=== PATIENT | female | born 1980 | race Two or more races ===

== ENCOUNTER 2017-10-14 00:03 | Inpatient (IN) | payer MEDICAID ==
[~2017-10-14] VITALS: Ht 167.6 cm; Wt 72.6 kg
[2017-10-14] MEDS ORDERED: FAMO20TA8 PO (00:22)
[2017-10-14] MEDS ORDERED: ASPI-605 PO (00:22)
[2017-10-14] MEDS ORDERED: SODIUM CHLORIDE PO (00:22)
[2017-10-14] MEDS ORDERED: ATOR20TA PO (00:22)
[2017-10-14] MEDS ORDERED: DULO30CA2 PO (00:22)
[2017-10-14] MEDS ORDERED: BISA10SU8 RC (00:22)
[2017-10-14] MEDS ORDERED: MAGN400O6 PO (00:23)
[2017-10-14] MEDS ORDERED: SENN-18 PO (00:23)
[2017-10-14] MEDS ORDERED: NA P133E RC (00:23)
[2017-10-14] MEDS ORDERED: ACET-73 PO (00:23)
[2017-10-14] MEDS ORDERED: IV NORMAL SALINE 1000 ML BAG IV ONE (00:30)
[2017-10-14] MEDS ORDERED: ONDANSETRON 4 MG/2 ML VIAL IV ONE ×2 (00:30→02:45)
[2017-10-14] MEDS ORDERED: ONDANSETRON 4 MG/2 ML VIAL ONE ×2 (00:42→02:12)
[2017-10-14 00:56] LABS: BASOPHILS % (AUTO) 0.4 % (0.0-2.0); EOSINOPHILS % (AUTO) 0.3 % (0.0-7.0); HEMATOCRIT 40.3 % (31.2-41.9); LYMPHOCYTES # (AUTO) 2.6 K/uL (20.0-40.0); LYMPHOCYTES % (AUTO) 24.8 % (20.5-51.5); MEAN CORPUSCULAR HEMOGLOBIN 30.4 uug (24.7-32.8); MEAN CORPUSCULAR HGB CONC 35 g/dL (32.3-35.6); MEAN CORPUSCULAR VOLUME 87.3 fL (75.5-95.3); MONOCYTES # (AUTO) 0.8 K/uL (2.0-10.0); MONOCYTES % (AUTO) 8.1 % (0.0-11.0); NEUTROPHILS # (AUTO) 6.9 K/uL (1.8-8.9); NEUTROPHILS % (AUTO) 66.4 % (38.5-71.5); PLATELET COUNT (AUTO) 231 K/uL (179-408); RED BLOOD CELL COUNT(AUTO) 4.62 MIL/uL (3.63-4.92); WHITE BLOOD COUNT (AUTO) 10.4 K/uL (3.8-11.8)
[2017-10-14 01:05] LABS: CREATININE 0.7 mg/dL (0.6-1.3); POTASSIUM 3.3 mmol/L (3.5-5.1)
[2017-10-14 01:10] LABS: BILIRUBIN,DIRECT 0.2 mg/dL (0.0-0.2); BILIRUBIN,TOTAL 0.6 mg/dL (0.2-1.0); TOTAL PROTEIN, SERUM 7.5 g/dL (6.4-8.2)
[2017-10-14 01:32] LABS: *BILIRUBIN,URIN NEGATIVE (NEGATIVE); *BLOOD, URINE NEGATIVE (NEGATIVE); *CLARITY,URINE SLIGHTLY CLOUDY (CLEAR); *COLOR,URINE YELLOW (YELLOW); *KETONES,URINE 2+ (NEGATIVE); *PROTEIN,URINE 1+ (NEGATIVE); *UROBILINOGEN,URINE 0.2 E.U./dl (NORMAL); LEUKOCYTE ESTERASE ,URINE 1+ (NEGATIVE); NITRITE, URINE POSITIVE (NEGATIVE); UGLUCOSE NEGATIVE (NEGATIVE)
[2017-10-14 01:51] LABS: RBC,URINE 0-3 /HPF (0-3); WBC,URINE 20-50 /HPF (0-3)
[2017-10-14 01:52] LABS: BACTERIA,URINE MANY /HPF (NONE SEEN); SQUAMOUS EPITHELIAL CELL,UR MANY /HPF (NONE SEEN)
[2017-10-14] MEDS ORDERED: MORPHINE SULFATE 4 MG/1 ML DISP.SYRIN ONE (02:08)
[2017-10-14] MEDS ORDERED: MORPHINE SULFATE 2 MG/1 ML DISP.SYRIN IV ONE (02:15)
[2017-10-14] MEDS ORDERED: POTASSIUM CHLORIDE 10 MEQ TAB.PRT.SR ONE (02:43)
[2017-10-14] MEDS ORDERED: PIPERACILLIN/TAZOBACTAM/D5W 50 ML IV ONE (02:43)
[2017-10-14] MEDS ORDERED: PIPERACILLIN SODIUM/TAZOBACTAM 3.375 G in IV DEXTROSE 5% 50 ML IV ONE (02:45)
[2017-10-14] MEDS ORDERED: POTASSIUM CHLORIDE 10 MEQ TAB.PRT.SR PO ONE (02:45)
[2017-10-14 07:00] VITALS: BP 112/69
[2017-10-14] MEDS ORDERED: ACETAMINOPHEN ES 500 MG TABLET PO PRN (08:00)
[2017-10-14] MEDS ORDERED: MAGNESIUM HYDROXIDE 30 ML LIQUID UDC PO PRN (08:00)
[2017-10-14] MEDS ORDERED: FLEET ENEMA 133 ML BOTTLE RC PRN (08:00)
[2017-10-14] MEDS ORDERED: BISACODYL 10 MG SUPP.RECT RC PRN (08:00)
[2017-10-14] MEDS: FAMOTIDINE 20 MG TABLET PO SCH ×2 (09:17→16:43)
[2017-10-14] MEDS: DULOXETINE 30 MG CAPSULE.DR PO SCH (09:17)
[2017-10-14] MEDS: PIPERACILLIN/TAZOBACTAM/D5W 2.25 G in PREMIXED 1 EACH IV SCH ×3 (09:17→20:50)
[2017-10-14] MEDS: ASPIRIN EC 81 MG TABLET.DR PO SCH (09:17)
[2017-10-14] MEDS: SENNOSIDES 1 TABLET PO SCH ×2 (09:17→16:43)
[2017-10-14 11:41] VITALS: BP 106/69
[2017-10-14] MEDS: POTASSIUM CHLORIDE 10 MEQ in IV D5/ 0.9% NACL 1,000 ML IV PRN ×2 (12:06→20:52)
[2017-10-14] MEDS: ONDANSETRON 4 MG/2 ML VIAL IV PRN (12:53)
[2017-10-14 15:38] VITALS: BP 105/62
[2017-10-14 20:02] VITALS: BP 103/55
[2017-10-14] MEDS: ATORVASTATIN 20 MG TABLET PO SCH (20:50)
[2017-10-15] MEDS: PIPERACILLIN/TAZOBACTAM/D5W 2.25 G in PREMIXED 1 EACH IV SCH ×4 (02:45→20:17)
[2017-10-15 04:00] VITALS: BP 102/56
[2017-10-15 06:34] LABS: BASOPHILS % (AUTO) 0.4 % (0.0-2.0); EOSINOPHILS # (AUTO) 0.1 K/uL (0.0-0.7); EOSINOPHILS % (AUTO) 1.2 % (0.0-7.0); HEMOGLOBIN 12.8 g/dL (10.9-14.3); LYMPHOCYTES # (AUTO) 2.6 K/uL (20.0-40.0); MEAN CORPUSCULAR HEMOGLOBIN 29.7 uug (24.7-32.8); MEAN CORPUSCULAR HGB CONC 34 g/dL (32.3-35.6); MONOCYTES # (AUTO) 0.7 K/uL (2.0-10.0); MONOCYTES % (AUTO) 9.6 % (0.0-11.0); NEUTROPHILS # (AUTO) 4.3 K/uL (1.8-8.9); NEUTROPHILS % (AUTO) 55.8 % (38.5-71.5); PLATELET COUNT (AUTO) 226 K/uL (179-408); RED BLOOD CELL COUNT(AUTO) 4.32 MIL/uL (3.63-4.92); WHITE BLOOD COUNT (AUTO) 7.8 K/uL (3.8-11.8)
[2017-10-15] MEDS ORDERED: PANTOPRAZOLE SODIUM 40 MG TABLET.DR PO SCH (07:00)
[2017-10-15 07:03] LABS: BILIRUBIN,TOTAL 0.6 mg/dL (0.2-1.0); CREATININE 0.7 mg/dL (0.6-1.3); PHOSPHOROUS 4.6 mg/dL (2.5-4.9); POTASSIUM 3.4 mmol/L (3.5-5.1); TOTAL PROTEIN, SERUM 6.3 g/dL (6.4-8.2)
[2017-10-15] MEDS: ASPIRIN EC 81 MG TABLET.DR PO SCH (08:36)
[2017-10-15] MEDS: DULOXETINE 30 MG CAPSULE.DR PO SCH (08:37)
[2017-10-15] MEDS: FAMOTIDINE 20 MG TABLET PO SCH ×2 (08:37→16:20)
[2017-10-15] MEDS: SENNOSIDES 1 TABLET PO SCH ×2 (08:37→16:20)
[2017-10-15] MEDS: POTASSIUM CHLORIDE 10 MEQ in IV D5/ 0.9% NACL 1,000 ML IV PRN ×2 (08:39→20:17)
[2017-10-15 11:38] VITALS: BP 104/59
[2017-10-15] MEDS ORDERED: POTASSIUM CHLORIDE 20 MEQ TAB.PRT.SR PO ONE (14:00)
[2017-10-15 15:35] VITALS: BP 107/70
[2017-10-15] MEDS: ONDANSETRON 4 MG/2 ML VIAL IV PRN (19:12)
[2017-10-15 20:00] VITALS: BP 111/73
[2017-10-15] MEDS: ATORVASTATIN 20 MG TABLET PO SCH (20:17)
[2017-10-16] MEDS: PIPERACILLIN/TAZOBACTAM/D5W 2.25 G in PREMIXED 1 EACH IV SCH (02:15)
[2017-10-16 04:52] VITALS: BP 105/65
[2017-10-16] MEDS ORDERED: PIPERACILLIN/TAZOBACTAM/D5W 50 ML IV SCH (09:00)
[2017-10-16] MEDS: POTASSIUM CHLORIDE 10 MEQ in IV D5/ 0.9% NACL 1,000 ML IV PRN (09:26)
[2017-10-16] MEDS: SENNOSIDES 1 TABLET PO SCH ×3 (09:27→17:30)
[2017-10-16] MEDS: ASPIRIN EC 81 MG TABLET.DR PO SCH (09:27)
[2017-10-16] MEDS: FAMOTIDINE 20 MG TABLET PO SCH ×2 (09:27→17:15)
[2017-10-16] MEDS: DULOXETINE 30 MG CAPSULE.DR PO SCH (09:27)
[2017-10-16 12:01] VITALS: BP 103/65
[2017-10-16 16:00] VITALS: BP 110/68
[2017-10-16 20:00] VITALS: BP 114/70
[2017-10-16] MEDS: ATORVASTATIN 20 MG TABLET PO SCH (20:18)
[2017-10-17 04:55] VITALS: BP 109/71
[2017-10-17] MEDS: SENNOSIDES 1 TABLET PO SCH (08:23)
[2017-10-17] MEDS: ASPIRIN EC 81 MG TABLET.DR PO SCH (08:23)
[2017-10-17] MEDS: FAMOTIDINE 20 MG TABLET PO SCH (08:23)
[2017-10-17] MEDS: DULOXETINE 30 MG CAPSULE.DR PO SCH (08:23)
[2017-10-17 09:08] VITALS: BP 107/70
== END 2017-10-17 10:00 | DRG 720 ==
LOC: ER 00:10 → MED 05:30
PROVIDERS: ADMIT Internal Medicine; ATTEND Internal Medicine
DX: A41.9 Sepsis, unspecified organism (principal); I69.351 Hemiplegia and hemiparesis following cerebral infarction affecting right dominant side; F03.90 Unspecified dementia, unspecified severity, without behavioral disturbance, psychotic disturbance, mood disturbance, and anxiety; N30.00 Acute cystitis without hematuria; I69.320 Aphasia following cerebral infarction; K21.9 Gastro-esophageal reflux disease without esophagitis; Z79.82 Long term (current) use of aspirin; Z79.899 Other long term (current) drug therapy; E86.0 Dehydration; E87.6 Hypokalemia; B96.89 Other specified bacterial agents as the cause of diseases classified elsewhere
CPT/HCPCS: 36415; 70030-TC; 71045; 73551; 73590; 83605; 83735; 84100; 84703; 85025; 85730; 87040; 87077; 87086; 93005; A4663; A9150; J2270; J2405; J2543; J3480; J3490; J7030; J7042

== ENCOUNTER 2018-02-14 01:39 | Emergency (ER) | payer MEDICAID, OTHER ==
[~2018-02-14] VITALS: Ht 170.2 cm; Wt 79.4 kg
[~2018-02-14 01:39] MED LIST: ACET-73 PO; ASPI-605 PO; ATOR20TA PO; BISA10SU8 RC; DULO30CA2 PO; FAMO20TA8 PO; MAGN400O6 PO; NA P133E RC; SENN-18 PO; SODIUM CHLORIDE PO
--- NOTE | 2018-02-14 01:55 | NUR ---
admitted pt. from [facility] to [facility]a via private ambulance c/o nausea/ vomiting. dr xiong came & evaluated pt.
[2018-02-14] MEDS ORDERED: ONDANSETRON 4 MG/2 ML VIAL IM ONE (02:00)
--- NOTE | 2018-02-14 02:15 | NUR ---
in & out urinary cath done aseptically, urine specimen sent to lab. blood drawm for lab works.
[2018-02-14 02:16] LABS: BASOPHILS % (AUTO) 0.3 % (0.0-2.0); EOSINOPHILS # (AUTO) 0.1 K/uL (0.0-0.7); EOSINOPHILS % (AUTO) 0.6 % (0.0-7.0); HEMATOCRIT 40.3 % (31.2-41.9); HEMOGLOBIN 13.7 g/dL (10.9-14.3); LYMPHOCYTES # (AUTO) 2.1 K/uL (20.0-40.0); MEAN CORPUSCULAR HEMOGLOBIN 30.1 uug (24.7-32.8); MEAN CORPUSCULAR HGB CONC 34 g/dL (32.3-35.6); MONOCYTES # (AUTO) 0.6 K/uL (2.0-10.0); MONOCYTES % (AUTO) 7.1 % (0.0-11.0); NEUTROPHILS # (AUTO) 5.4 K/uL (1.8-8.9); PLATELET COUNT (AUTO) 227 K/uL (179-408); RED BLOOD CELL COUNT(AUTO) 4.53 MIL/uL (3.63-4.92); WHITE BLOOD COUNT (AUTO) 8.2 K/uL (3.8-11.8)
[2018-02-14 02:20] LABS: CARBON DIOXIDE 31 mmol/L (21-32); CHLORIDE 103 mmol/L (98-107); CREATININE 0.8 mg/dL (0.6-1.3); GLUCOSE 110 mg/dL (74-106); POTASSIUM 3.1 mmol/L (3.5-5.1); UREA NITROGEN, BLOOD 5 mg/dL (7-18)
[2018-02-14 02:22] LABS: *BILIRUBIN,URIN NEGATIVE (NEGATIVE); *BLOOD, URINE NEGATIVE (NEGATIVE); *CLARITY,URINE SLIGHTLY CLOUDY (CLEAR); *COLOR,URINE YELLOW (YELLOW); *KETONES,URINE 3+ (NEGATIVE); *PROTEIN,URINE TRACE (NEGATIVE); *UROBILINOGEN,URINE 0.2 E.U./dl (NORMAL); LEUKOCYTE ESTERASE ,URINE TRACE (NEGATIVE); NITRITE, URINE POSITIVE (NEGATIVE); UGLUCOSE NEGATIVE (NEGATIVE)
[2018-02-14 02:26] LABS: ALANINE AMINOTRANSFERASE 23 U/L (14-59); ALKALINE PHOSPHATASE 71 U/L (50-136); ASPARTATE AMINOTRANSFERASE 10 U/L (15-37); BILIRUBIN,DIRECT 0.2 mg/dL (0.0-0.2); BILIRUBIN,TOTAL 0.8 mg/dL (0.2-1.0); LIPASE 113 U/L (73-393); TOTAL PROTEIN, SERUM 7.3 g/dL (6.4-8.2)
[2018-02-14 02:32] LABS: WBC,URINE 20-50 /HPF (0-3)
[2018-02-14 02:33] LABS: BACTERIA,URINE MANY /HPF (NONE SEEN); SQUAMOUS EPITHELIAL CELL,UR FEW /HPF (NONE SEEN)
--- NOTE | 2018-02-14 02:43 | NUR ---
Call placed to [facility] Nephrology, Dr. Cole will be paged.
[2018-02-14] MEDS ORDERED: POTASSIUM CHLORIDE 20 MEQ TAB.PRT.SR PO ONE (02:45)
[2018-02-14] MEDS ORDERED: CEFTRIAXONE 1 G VIAL IM ONE (02:45)
[2018-02-14] MEDS ORDERED: NITROFURANTOIN/NITROFURAN MAC 100 MG CAPSULE PO ONE (02:45)
--- NOTE | 2018-02-14 02:51 | NUR ---
Spoke to Vanessa for patient d/c transport to [facility]. 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 Trip # [id number]
[2018-02-14] MEDS ORDERED: ONDANSETRON 4 MG/2 ML VIAL ONE (03:00)
[2018-02-14] MEDS ORDERED: CEFTRIAXONE 1 G VIAL ONE (03:43)
[2018-02-14] MEDS ORDERED: POTASSIUM CHLORIDE 20 MEQ TAB.PRT.SR ONE (03:44)
[2018-02-14] MEDS ORDERED: LIDOCAINE HCL 2% 20 ML VIAL ONE (03:44)
[2018-02-14] MEDS ORDERED: NITROFURANTOIN/NITROFURAN MAC 100 MG CAPSULE ONE (03:44)
--- NOTE | 2018-02-14 03:44 | NUR ---
Patient in bed, no acute distress noted. Pending dischrage.
--- NOTE | 2018-02-14 03:46 | NUR ---
Report given to Jeanne (Furnace Setter) at [facility].
--- NOTE | 2018-02-14 04:17 | NUR ---
Spoke to Aman at [facility]. ETA is delayed by 30 -45 min.
--- NOTE | 2018-02-14 04:52 | NUR ---
Patient discharged to home in stable conditon. Written and verbal after care instructions given. Patient verbalizes understanding of instructions.Patient d/c to SNF via [facility], [id number]. Chart/Belongings given to [place] Goodrich
[2018-02-14 04:54] VITALS: BP 116/68
== END 2018-02-14 04:55 | disposition home or self-care (01) ==
LOC: ER 01:42
DX: N30.90 Cystitis, unspecified without hematuria (principal); R11.2 Nausea with vomiting, unspecified; E78.5 Hyperlipidemia, unspecified; K21.9 Gastro-esophageal reflux disease without esophagitis
CPT/HCPCS: 36415; 80048; 80076; 81001; 83690; 84702; 85025; 96372 ×2; 99284; J0696; J2405; J3490; A4663; C1758